=== PATIENT | female | born 1975 ===

== ENCOUNTER → 2021-01-09 | Day surgery (SDC) | payer OTHER | END | disposition home or self-care (01) | LOC: ADM 01-05 14:30 → AMB-ENDOS 08:51 | PROVIDERS: ATTEND Colon & Rectal Surgery | DX: K62.89 Other specified diseases of anus and rectum (principal); K64.2 Third degree hemorrhoids; Z20.822 Contact with and (suspected) exposure to COVID-19 ==

== ENCOUNTER 2021-01-21 11:29 | Outpatient (CLI) | payer OTHER | END 2021-01-21 11:44 | disposition home or self-care (01) | LOC: SONOGRAMA 11:29 → MAMO-SONO 14:15 | PROVIDERS: ATTEND Family Medicine | DX: E06.3 Autoimmune thyroiditis (principal); E03.8 Other specified hypothyroidism; R92.8 Other abnormal and inconclusive findings on diagnostic imaging of breast; N64.89 Other specified disorders of breast ==